=== PATIENT | female | born 1945 | race Caucasian/White ===

== ENCOUNTER 2017-11-18 20:26 | Emergency (ER) | payer MEDICARE, BC ==
[2017-11-18] MEDS: DIPHTH/TET/ACEL PERTUSS (ADULT) 0.5 ML VIAL IM* (22:07)
[2017-11-18] MEDS: LIDOCAINE 1% (MDV) 10 ML INJ INFIL (22:30)
== END 2017-11-19 | disposition home or self-care (01) ==
LOC: FTE 11-19
DX: S61.411A Laceration without foreign body of right hand, initial encounter (principal); I10 Essential (primary) hypertension; E11.9 Type 2 diabetes mellitus without complications; W26.9XXA Contact with unspecified sharp object(s), initial encounter; Y92.9 Unspecified place or not applicable; Z23 Encounter for immunization; Z79.4 Long term (current) use of insulin
CPT/HCPCS: 12001; 90471; 90715; 99283-25